=== PATIENT | female | born 1935 ===

== ENCOUNTER 2024-02-25 06:22 | Day surgery (SDC) | payer OTHER ==
[2024-02-25] MEDS ORDERED: DIPHENHYDRAMINE HCL 50 MG/ML VIAL 1ML IV ONE (10:30)
[2024-02-25] MEDS ORDERED: MIDAZOLAM HCL 2 MG/2 ML VIAL IV ONE (10:30)
[2024-02-25] MEDS ORDERED: fentaNYL CITRATE 50 MCG/ML AMPUL IV ONE (10:30)
== END 2024-02-25 12:05 | disposition home or self-care (01) ==
LOC: AMB-ENDOS 06:22
PROVIDERS: ATTEND Surgery
DX: K57.30 Diverticulosis of large intestine without perforation or abscess without bleeding (principal); R19.4 Change in bowel habit